=== PATIENT | male | born 1995 | race Caucasian/White ===

== ENCOUNTER → 2016-11-04 | Outpatient (CLI) | payer BC | LOC: BMCIMAGING 11:14 | PROVIDERS: ATTEND Internal Medicine Rheumatology | DX: M54.5 Low back pain (principal); Z87.19 Personal history of other diseases of the digestive system ==

== ENCOUNTER 2017-08-09 17:45 | Emergency (ER) | payer BC ==
[2017-08-09 17:51] VITALS: TEMP 98.2
--- NOTE | 2017-08-09 19:33 | EDPHY ---
H & P Time Seen by Provider: 08/09/17 19:29 HPI/ROS: Chief complaint. Possible Crohn's flare HPI. 22-year-old male presents emergency department with 2 day history of subjective fever. Multiple skin rashes. He has a history of ulcerative colitis and has been hospitalized for this previously. He has had previous total colectomy. He has had nausea without vomiting. Really no abdominal pain. He is inflammation around rectum and having a hard time using the bathroom. 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 Denies urinary symptoms. He just finished a prednisone taper and is cycling off Cimzia and is scheduled to start a new medication for his Crohn's disease on Wednesday. Multiple small red bumps on chin and arms and hand and around the left nipple. ROS Constitutional. Subjective fever Eyes. no problems with vision ENT. no sore throat, no nasal drainage Cardiovascular. no chest pain Respiratory. no shortness of breath, no cough Abdominal. Nausea without vomiting. Really unable to move bowel secondary to inflammation around the rectum. . no problems urinating MS. no calf pain/swelling, no neck/back pain, no joint pain Skin. no rash Lymph. no swollen glands Neuro. no headache, no dizziness, no difficulty walking or with speech Past Medical/Surgical History: Crohn's disease, total colectomy Social History: Single, nonsmoker, no alcohol Smoking Status: Never smoked Physical Exam: General Appearance: Alert well-developed male moderate distress vital signs are stable though initial heart rate 100 Eyes: Pupils equal and round no pallor or injection. ENT, Mouth: Mucous membranes are moist. Respiratory: There are no retractions, lungs are clear to auscultation. Cardiovascular: Regular rate and rhythm. Gastrointestinal: Abdomen is soft with multiple well-healed scars. Rectal exam shows multiple opened fistulas. No obvious signs of infection Neurological: Awake and alert, sensory and motor exams grossly normal. Skin: Multiple maculopapular lesions consistent with MRSA Musculoskeletal: Neck is supple nontender. Extremities symmetrical, full range of motion. Psychiatric: Patient is oriented X 3, there is no agitation. Constitutional: Initial Vital Signs Temperature (C) 36.8 C 08/09/17 17:48 Heart Rate 100 08/09/17 17:48 Respiratory Rate 18 08/09/17 17:48 Blood Pressure 104/71 08/09/17 17:48 O2 Sat (%) 97 01/08/18 17:48 O2 Delivery Mode Room Air Allergies/Adverse Reactions: No Known Allergies Allergy (Verified 08/09/17 17:47) Home Medications: Medication Instructions Recorded Ciprofloxacin [Cipro] 500 mg PO 08/09/17 Medical Decision Making Procedures: IV normal saline Procedure incision and drainage of abscess--indication is abscess around the left nipple. 1% lidocaine with epinephrine is infiltrated after sterile preparation. Incision drainage with 11. Blade. Moderate purulence is expressed. Culture is obtained. Is probed to break up loculations. Irrigated with normal saline. Covered in bandage. Patient tolerates the procedure well ED Course/Re-evaluation: Patient complains of some pain is given morphine IV. Patient and I discussed laboratory evaluation at 9:30 p.m.. We discussed possible treatment plans. I consulted and discussed the case with Dr. santosh swift on on-call for Gastroenterology. He recommends consultation with is physician at [facility] as apparently we not had biology colles to bite adequate treatment for the patient here at [facility]. He recommends Solu-Medrol IV. Phone call is placed to Dr. Kelsey Hill at [facility]. I common discussed the case with Dr. Chris Hernandez at and she has [facility]. He recommends holding off Solu- Medrol. He recommends no treatment tonight and would like to recheck the patient tomorrow at [facility]. Patient is given the phone number. Patient and I discussed laboratory evaluation, treatment plan including criteria for return importance of follow-up further evaluation. He expresses understanding and agreement Differential Diagnosis: Possible tear of Crohn's disease as the patient has finished his prednisone taper and cycling off regular medication Cimzia. No evidence for acute abdomen. He has multiple small skin abscesses and then 1 larger abscess around the left nipple. These are likely MR SA. We will hold off antibiotic treatment until the patient sees the pediatric social worker in the [facility] tomorrow at [facility] - Data Points Laboratory Results: Laboratory Results 08/09/17 20:15 08/09/17 20:15 08/09/17 08/09/17 20:15 20:15 WBC 7.22 10^3/uL 10^3/uL (3.80-9.50) RBC 5.42 10^6/uL 10^6/uL (4.40-6.38) Hgb 13.4 g/dL L g/dL (13.7-17.5) Hct 42.7 % % (40.0-51.0) MCV 78.8 fL L fL (81.5-99.8) MCH 24.7 pg L pg (27.9-34.1) MCHC 31.4 g/dL L g/dL (32.4-36.7) RDW 15.8 % H % (11.5-15.2) Plt Count 296 10^3/uL 10^3/uL (150-400) MPV 10.3 fL fL (8.7-11.7) Neut % (Auto) 41.9 % % (39.3-74.2) Lymph % (Auto) 39.2 % % (15.0-45.0) [place] % (Auto) 16.5 % H % (4.5-13.0) Eos % (Auto) 1.7 % % (0.6-7.6) Baso % (Auto) 0.4 % % (0.3-1.7) Nucleat RBC Rel Count 0.0 % % (0.0-0.2) Absolute Neuts (auto) 3.03 10^3/uL 10^3/uL (1.70-6.50) Absolute Lymphs (auto) 2.83 10^3/uL 10^3/uL (1.00-3.00) Absolute Monos (auto) 1.19 10^3/uL H 10^3/uL (0.30-0.80) Absolute Eos (auto) 0.12 10^3/uL 10^3/uL (0.03-0.40) Absolute Basos (auto) 0.03 10^3/uL 10^3/uL (0.02-0.10) Absolute Nucleated RBC 0.00 10^3/uL 10^3/uL (0-0.01) Immature Gran % 0.3 % % (0.0-1.1) Immature Gran # 0.02 10^3/uL 10^3/uL (0.00-0.10) Sodium 141 mEq/L mEq/L (134-144) Potassium 4.2 mEq/L mEq/L (3.5-5.2) Chloride 104 mEq/L mEq/L (97-110) Carbon Dioxide 25 mEq/l mEq/l (22-31) Anion Gap 12 mEq/L mEq/L (8-16) BUN 18 mg/dL mg/dL (7-23) Creatinine 0.9 mg/dL mg/dL (0.7-1.3) Estimated GFR > 60 Glucose 93 mg/dL mg/dL (70-100) Calcium 9.3 mg/dL mg/dL (8.5-10.4) Total Bilirubin 0.3 mg/dL mg/dL (0.1-1.4) Conjugated Bilirubin 0.2 mg/dL mg/dL (0.0-0.5) Unconjugated Bilirubin 0.1 mg/dL mg/dL (0.0-1.1) AST 20 IU/L IU/L (17-59) ALT 36 IU/L IU/L (21-72) Alkaline Phosphatase 90 IU/L IU/L (38-126) Total Protein 7.0 g/dL g/dL (6.3-8.2) Albumin 3.7 g/dL g/dL (3.5-5.0) Medications Given: Discontinued Medications Sodium Chloride (Ns) 1,000 mls @ 0 mls/hr IV EDNOW ONE; Wide Open PRN Reason: Protocol Stop: 08/09/17 19:59 Last Admin: 08/09/17 20:13 Dose: 1,000 mls Sodium Chloride (Ns) 1,000 mls @ 0 mls/hr IV EDNOW ONE; Wide Open PRN Reason: Protocol Stop: 08/09/17 19:59 Last Admin: 08/09/17 21:38 Dose: 1,000 mls Morphine Sulfate (Morphine) 6 mg IVP EDNOW ONE Stop: 08/09/17 21:21 Last Admin: 08/09/17 21:29 Dose: 6 mg Departure - Departure Disposition: Home, Routine, Self-Care Clinical Impression: Ulcerative colitis Qualifiers: Ulcerative colitis location: unspecified ulcerative colitis location Digestive disease complication type: with fistula Qualified Code(s): K51.913 - Ulcerative colitis, unspecified with fistula Condition: Good Instructions: Ulcerative Colitis (ED) Additional Instructions: Return tonight for worsening symptoms. Call the [facility] tomorrow for follow-up appointment. [phone]. I spoke tonight to Dr. Chris Hernandez. Keep the incision around the left nipple from draining the abscess clean and dry. You may shower. Discuss with Gastroenterology tomorrow about possible antibiotics. Referrals: KELSEY ALVAREZ [Other] - As per Instructions
[2017-08-09] MEDS ORDERED: NS 1,000 ML IV ONE ×2 (19:58)
[2017-08-09 20:33] LABS: PLATELET COUNT 296 10^3/uL (150-400)
[2017-08-09 22:56] VITALS: BP 122/63; PULSE 84; RESP 16; O2SAT 96
== END 2017-08-09 22:55 | disposition home or self-care (01) ==
PROC: 0H9XXZZ Drainage of Left Nipple, External Approach (ICD-10-PCS; principal; 2017-08-09)
DX: K51.913 Ulcerative colitis, unspecified with fistula (principal); E86.9 Volume depletion, unspecified; N61.1 Abscess of the breast and nipple
CPT/HCPCS: 96374